=== PATIENT | female | born 1985 | race Caucasian/White ===

== ENCOUNTER → 2021-01-06 11:36 | Outpatient (BNVA) | payer SELFPAY | PROVIDERS: Family Provider Nurse Practitioner Family; Visit Provider Obstetrics & Gynecology | DX: N81.10 Cystocele, unspecified (principal); N93.9 Abnormal uterine and vaginal bleeding, unspecified; R35.0 Frequency of micturition | CPT/HCPCS: 83001; 84315; 84443; 84703; 85025 ==

== ENCOUNTER → 2021-02-06 08:07 | Outpatient (BNVA) | payer SELFPAY | PROVIDERS: Family Provider Nurse Practitioner Family; Visit Provider Obstetrics & Gynecology | DX: N85.2 Hypertrophy of uterus (principal) | CPT/HCPCS: 76830 ==

== ENCOUNTER → 2021-02-09 11:36 | Outpatient (BNVA) | payer SELFPAY | PROVIDERS: Family Provider Nurse Practitioner Family; Visit Provider Obstetrics & Gynecology | DX: Z11.52 Encounter for screening for COVID-19 (principal); N81.4 Uterovaginal prolapse, unspecified | CPT/HCPCS: 87635 ==

== ENCOUNTER 2021-02-15 14:03 | Observation (INO) | payer SELFPAY ==
[2021-02-13 10:22] VITALS: BMI 38.6
[2021-02-13 10:57] LABS: Basophils # 0.1 10^3/uL (0.0-0.1); Basophils % 1.5 %; Eosinophils # 0.2 10^3/uL (0.0-0.8); Eosinophils % 2.9 %; Hematocrit 42.7 % (37.0-47.0); Hemoglobin 14.2 g/dL (11.5-15.3); Lymphocytes # 1.6 10^3/uL (0.8-4.8); Lymphocytes % 27.3 %; Mean Corpuscular HGB Conc 33.3 g/dL (30.0-36.0); Mean Corpuscular Hemoglobin 29.3 pg (28.0-34.0); Mean Corpuscular Volume 88.2 fL (81-99); Monocytes # 0.5 10^3/uL (0.2-0.9); Monocytes % 7.6 %; Neutrophils % 60.4 %; Nucleated Red Blood Cells % 0 %; Platelet Count 312 10^3/cmm (130-400); Red Blood Count 4.84 10^6/uL (4.1-5.3); Red Cell Distribution Width 11.8 % (12.1-15.1)
[2021-02-13 11:13] LABS: Alanine Aminotransferase 28 U/L (0-33); Albumin Level 4.2 g/dL (3.5-5.2); Alkaline Phosphatase 50 IU/L (35-105); Aspartate Amino Transferase 21 U/L (0-32); Blood Urea Nitrogen 12 mg/dL (6-20); Calcium 8.6 mg/dL (8.5-10.5); Carbon Dioxide 25 mmol/L (22-29); Chloride 105 mmol/L (98-107); Globulin 2.6 g/dL (1.3-4.6); Glomerular Filtration Rate 94.7 mL/min (90-130); Glucose 111 mg/dL (65-115); Osmolality Calculated 290 mOsm/kg (285-295); Sodium 140 mmol/L (136-145); Total Bilirubin 0.4 mg/dL (0.15-1.2); Total Protein 6.8 g/dL (6.6-8.7)
[2021-02-13 11:38] LABS: OR HCG Qualitative Urine Negative (Negative)
--- NOTE | 2021-02-13 11:44 | P.ANESASSM_ITS ---
Pre-Anesthetic Assessment Pre-Anesthetic Assessment: Height/Weight: Height 1.63 m Weight 102.058 kg Preop Diagnosis: Abnormal uterine bleeding, pelvic pain, cystocele with uterine prolapse, st Proposed Procedure: Operation Date: 02/15/21 11:55 Proposed Procedures p Total Vaginal Hysterectomy 60836 [id number] N93.9 R10.2 N81.4(Not Applicable) - Glenn Lane MD s Anterior Repair Anterior Colporrhaphy(Not Applicable) - Gelnn Lane MD s Sling(Not Applicable) - Glenn Lane MD Was Beta Swathi taken within 24 hours: N/A Was Clonidine taken within 24 h ours: N/A Social: Social History: No alcohol and No tobacco Exam: Pre-Anes Outpt Exam: alert, oriented x 3, clear to auscultation bilaterally and regular rate & rhythm Airway: Submandibular: WNL Cervical ROM: WNL MP: 2 Dentition: Full History/ROS: No significant history except as noted Metabolic: Metabolic: Morbid obesity Anesthetic Plan: ASA status: 2 Anesthesia: General Risk of > 500 ml blood loss (7ml/kg in children): No PFSH Anesthesia PFSH: Medical History Abnormal uterine bleeding (AUB) Pelvic pain Family History Son Anesthesia complication Grandfather Diabetes maternal Mother Diabetes Hypertension Denies family history of Colon cancer Ovarian cancer Clotting disorder Heart disease Hyperlipidemia Breast cancer Bleeding disorder Uterine cancer Thyroid condition Stroke Social History (Updated 02/13/21 @ 08:47 by Claudia Oliver RN) Smoking and tobacco status: never smoked Alcohol intake: never Substance/Drug Use: never Female Reproductive History: Date of last menstrual period: 01/26/21 Data Anesthesia CBC & Chem 7: 02/13/21 10:34 02/13/21 10:34 Other Labs: Laboratory Results - last 48 hr 02/13/21 02/13/21 02/13/21 10:30 10:34 10:34 WBC 6.0 RBC 4.84 Hgb 14.2 Hct 42.7 MCV 88.2 MCH 29.3 MCHC 33.3 RDW 11.8 L Plt Count 312 MPV 10.0 Neut % (Auto) 60.4 Lymph % (Auto) 27.3 Bea[place]gard % (Auto) 7.6 Eos % (Auto) 2.9 Baso % (Auto) 1.5 Neut # (Auto) 3.60 Lymph # (Auto) 1.6 [place]gard # (Auto) 0.5 Eos # (Auto) 0.2 Baso # (Auto) 0.1 Nucleated RBC % (auto) 0 Nucleated RBCs # 0.0 Sodium 140 Potassium 4.0 Chloride 105 Carbon Dioxide 25 Anion Gap 14.0 BUN 12 Creatinine 0.7 GFR Calculation 94.7 Glucose 111 Calculated Osmolality 290 Calcium 8.6 Total Bilirubin 0.4 AST 21 ALT 28 Alkaline Phosphatase 50 Total Protein 6.8 Albumin 4.2 Globulin 2.6 Urine HCG, Qual Negative Cardiac Studies: No Data to Display
[2021-02-13 11:46] LABS: Urine Appearance Cloudy (CLEAR); Urine Color Yellow (Yellow)
[2021-02-13 11:47] LABS: Add Urine Microscopic? YES; Bilirubin Urine Neg (Negative); Blood Urine Neg (Negative); Glucose Urine UA Norm (Normal); Ketones Urine Negative (Negative); Leukocyte Esterase Urine Negative (Negative); Nitrate Urine Negative (Negative); Protein Urine Neg (Negative); Urobilinogen Urine Norm (Negative); pH Urine 5 (5-7)
[2021-02-13 12:19] LABS: Add Urine Culture? No; Amorphous Sediment Urine 2+ /hpf; Bacteria Urine 1+ /hpf; Mucus Urine 2+ /hpf; RBC Urine 0-4 /hpf (0-2)
[2021-02-15] VITALS (19 sets, daily range): BP systolic 90–144; BP diastolic 66–88; PULSE 59–90; RESP 16–20; TEMP 36.1–36.8; O2SAT 92–100
[2021-02-15 10:41] LABS: OR HCG Qualitative Urine Negative (Negative)
--- NOTE | 2021-02-15 10:49 | W.PM.OPSUD ---
Surgery/Procedure H&P Update DATE OF PROCEDURE: February 15, 2021 DATE H&P PERFORMED: 02/13/21 H&P UPDATE INFORMATION: I have reviewed H&P completed within last 30 days, I have examined patient prior to procedure and No changes to prior documentation PREOP DIAGNOSIS: Abnormal uterine bleeding, pelvic pain, cystocele with uterine prolapse, st PLANNED PROCEDURE: Operation Date: 02/15/21 11:55 Proposed Procedures p Total Vaginal Hysterectomy [id number] N93.9 R10.2 N81.4(Not Applicable) - Glenn Lane MD s Anterior Repair Anterior Colporrhaphy(Not Applicable) - Glenn Lane MD s Sling(Not Applicable) - Glenn Lane MD
[2021-02-15] MEDS: scopolamine 1.5 Patch 1 PATCH TRANSDERMA (10:59)
[2021-02-15] MEDS: sodium chloride 0.9% 500 ML IV (11:16)
--- NOTE | 2021-02-15 11:22 | P.ANESUD_ITS ---
Pre-Anesthetic Update Pre-Anesthetic Assessment: Date of Surgery/Procedure: 02/15/21 Preop Naa gnosis: Abnormal uterine bleeding, pelvic pain, cystocele with uterine prolapse, st Proposed Procedure: Operation Date: 02/15/21 11:55 Proposed Procedures p Total Vaginal Hysterectomy 63317 [id number] N93.9 R10.2 N81.4(Not Applicable) - Glenn Lane MD s Anterior Repair Anterior Colporrhaphy(Not Applicable) - Glenn Lane MD s Sling(Not Applicable) - Glenn Lane MD Any changes to Pre-Anesthetic Assessment?: No Last Intake: Intake Last Liquid Date 02/14/21 Last Liquid Time 22:30 Last Solid Date 02/14/21 Last Solid Time 19:00 Labs Last 48hrs: Laboratory Results - last 48 hr 02/13/21 02/13/21 02/13/21 10:30 10:30 10:34 Urine Color Yellow Urine Appearance Cloudy Urine pH 5 Ur Specific Gravit y 1.030 Urine Protein Neg Urine Glucose (UA) Norm Urine Ketones Negative Urine Blood Neg Urine Nitrate Negative Urine Bilirubin Neg Urine Urobilinogen Norm Ur Leukocyte Fariba ase Negative Urine RBC 0-4 H Urine WBC None Ur Squamous Epith Cells 10-15 H Amorphous Sediment 2+ Urine Bacteria 1+ H Urine Mucus 2+ Urine HCG, Qual Negative Blood Type O Positive Rho(D) Type Positive / 4+ Antibody Screen Negative 02/15/21 10:37 Urine Color Urine Appearance Urine pH Ur Specific Gravit y Urine Protein Urine Glucose (UA) Urine Ketones Urine Blood Urine Nitrate Urine Bilirubin Urine Urobilinogen Ur Leukocyte Fariba ase Urine RBC Urine WBC Ur Squamous Epith Cells Amorphous Sediment Urine Bacteria Urine Mucus Urine HCG, Qual Negative Blood Type Rho(D) Type Antibody Screen Vitals: Temperature 98 F 02/15/21 10:46 Temperature Source Temporal Artery S can 02/15/21 10:46 Pulse Rate 79 02/15/21 10:46 Respiratory Rate 16 02/15/21 10:46 Blood Pressure 144/88 02/15/21 10:46 Blood Pressure Lorelei n 106 02/15/21 10:46 Oxygen Delivery Me thod 02/15/21 10:46 Exam: Pre-Anes Outpt Exam: alert, oriented x 3, clear to auscultation bilaterally and regular rate & rhythm Cardiac Studies: No Data to Display
[2021-02-15] MEDS: sodium chloride 0.9% 1,000 ML 30 ML IV (11:58)
[2021-02-15] MEDS: ceFOXitin 2,000 MG in sodium chloride 0.9% (plus) 50 ML 100 MG IV (12:07)
[2021-02-15] MEDS: estrogens Conjugated Cream 30 gm 1 APPLIC VAGINAL (13:51)
--- NOTE | 2021-02-15 14:00 | P.OP_ITS ---
Operative Report Date of procedure: February 15, 2021 Pre-op Diagnosis: Abnormal uterine bleeding, pelvic pain, cystocele with uterine prolapse, st Post-op diagnosis: same Procedure Done: Total vaginal hysterectomy with anterior colporrhaphy augmented with allograft and mid urethral single incision sling Cystoscopy Specimens removed/disposition: Uterus Pathology: Uterus Surgeon: Glenn Lane MD Anesthesia: General Estimated blood loss (mL): 100 IV fluids (mL): 1,100 Urine output (mL): 400 Complications: None Condition: stable Disposition: PACU Brief History: 36-year-old with abnormal uterine bleeding, chronic pelvic pain, cystocele and stress urinary incontinence Procedure: After obtaining informed consent, the patient was taken to the operating room and placed in the supine position, given general anesthesia, and prepped and draped in sterile fashion. The abdomen, vulva and vagina were prepped and draped in a sterile manner. A time out procedure was performed. Exam under anesthesia performed. A Alves catheter was placed in the bladder. The anterior vaginal mucosa beneath the midurethra was infiltrated with 0.5% Marcaine with epinephrine. A vertical midline incision was made beneath the midurethra, nearly 1.5 cm length. Careful submucosal dissection was performed bilaterally up to the interior portion of the inferior pubic ramus. The insertion of adductor longus tendon on the patient?s pubic ramus was identified as reference land vince. Palpated the notch along the internal edge of ischiopubic ramus where the adductor longus tendon and the inferior pubic ramus meet. The needle of the SIS inserted aiming at the location of this notch. One of the integrated self-fixating tips place onto the needle by sliding it over the end of the needle. The needle/sling assembly was inserted toward the location of identified reference notch making sure that the flat of the handle is perpendicular to the desired path. The needle was tracked along the posterior surface of the ischiopubic ramus until the midline vince on the mesh is approximately at the midline position under the urethra. The needle was removed and the same was repeated on the contralateral side until the appropriate sling tension under the urethra was achieved ensuring that the mesh lays flat. The needle was removed and vaginal incision was closed in a running interlocking fashion with 2-0 Vicryl. Then proceeded to performed the single incision midurethral sling. A vertical midline incision was made beneath the midurethra, nearly 1.5 cm length. Careful submucosal dissection was performed bilaterally up to the interior portion of the inferior pubic ramus. The insertion of adductor longus tendon on the patient?s pubic ramus was identified as reference land vince. Palpated the notch along the internal edge of ischiopubic ramus where the adductor longus tendon and the inferior pubic ramus meet. The Altis single incision sling (SIS) was selected. With thin porcine graft the mesh of the sling was lined anteriorly and posteriorly with the graft. Then the needle of the SIS inserted aiming at the location of this notch. One of the integrated self- fixating tips place onto the needle by sliding it over the end of the needle. The needle/sling assembly was inserted toward the location of identified reference notch making sure that the flat of the handle is perpendicular to the desired path. The needle was tracked along the posterior surface of the ischiopubic ramus until the midline vince on the mesh is approximately at the midline position under the urethra. The needle was removed and the same was repe ated on the contralateral side until the appropriate sling tension under the urethra was achieved ensuring that the mesh lays flat. The needle was removed and vaginal incision was closed in a running interlocking fashion with 2-0 Vicryl. Then the Alves catheter was removed and cystoscope was inserted. The bladder was filled with sterile water. Complete evaluation of the bladder mucosa was performed noting no lacerations, dimpling, tears, bleeding of the mucosa or muscular layers. Both ureteral orifices were identified. Prompt excretion of urine from both ureteral orifices was noted. Cystoscope was withdrawn. Excellent hemostasis was obtained. Sponge, lap, needle, and instrument counts were correct times three. The patient was taken to the recovery room, awake and in stable condition.
--- NOTE | 2021-02-15 14:15 | P.PCN_ITS ---
PACU note PACU note: VSS, Good respiratory effort, report to COSMETICS DEMONSTRATOR Post-Anesthesia Exam: awake
--- NOTE | 2021-02-15 14:15 | PM.PACU ---
PACU note PACU note: VSS, Good respiratory effort, report to LABORER OPERATOR Post-Anesthesia Exam: awake
--- NOTE | 2021-02-15 14:19 | SUR.PHASEI ---
PT TO PACU LYING ON LT SITE WITH GOOD RESP EFFORT, VSS IV PATENT NO VAGINAL DRAINAGE NOTED SCDS ON , MCPHERSON TO DD WITH YELLOW URINE NOTED IN TUBING AND BAG.
[2021-02-15] MEDS: fentaNYL 50 mcg/mL INJ 2mL IVP (14:25)
--- NOTE | 2021-02-15 14:32 | ANE.PACU2 ---
Inpatient post-anesthesia follow up: Airway intact: Yes Vital signs: Temperature 97 F Pulse Rate 77 Respiratory Rate 20 Blood Pressure 111/68 Pulse Oximetry 92 Oxygen Delivery Me thod Simple Mask Oxygen Flow Rate 6 Fraction of Inspir ed Oxygen Hydration adequate: Yes Nausea and vomiting: No Pain level: 2 Mental status: Baseline
[2021-02-15] MEDS: ondansetron 2 mg/ML SDV 2 mL 4 MG IVP (14:48)
--- NOTE | 2021-02-15 15:26 | SUR.PHASEI ---
1451 PT MOVED UP IN BED AND READIED FOR TRANSPORT, PT THEN NAUSEATED SEE MED GIVEN AND PT GIVEN COOL CLOTH, NAUSEA SUBSIDED AND PT TO OB PER CART 1500 PT TO ROOM AND MOVES SELF TO BED THEN C/O OF NAUSEA AGAIN, VSS , PT ALERT NO VAGINAL BLEEDING NOTED , MCPHERSON PATENT OF YELLOW URINE.
[2021-02-15] MEDS: ketorolac 30 mg/mL INJ IVP (15:40)
[2021-02-15] MEDS: ondansetron 2 mg/ML SDV 2 mL 4 MG (15:40)
[2021-02-15] MEDS: dextrose 5%-lactated ringers 1,000 ML 125 ML IV (17:56)
[2021-02-16 01:53] VITALS: BP 109/64; PULSE 78; RESP 16
[2021-02-16 05:37] LABS: Hematocrit 36.1 % (37.0-47.0); Mean Corpuscular HGB Conc 33.2 g/dL (30.0-36.0); Mean Corpuscular Hemoglobin 29.3 pg (28.0-34.0); Mean Corpuscular Volume 88.3 fL (81-99); Mean Platelet Volume 10.3 fL (7.4-10.4); Platelet Count 294 10^3/cmm (130-400); Red Blood Count 4.09 10^6/uL (4.1-5.3); Red Cell Distribution Width 11.9 % (12.1-15.1); White Blood Count 10.1 10^3/uL (4.0-10.0)
[2021-02-16 06:23] VITALS: BP 130/80; PULSE 90; RESP 16; TEMP 36.7
[2021-02-16] MEDS: acetaminophen 325 mg Tablet 650 MG PO (07:22)
[2021-02-16] MEDS: docusate sodium 100 mg Capsule PO (08:48)
[2021-02-16] MEDS: simethicone 80 mg Chew PO (08:52)
--- NOTE | 2021-02-16 09:23 | PC.NURSE ---
0830 vaginal packing removed intact; pt tolerated well
--- NOTE | 2021-02-16 10:26 | P.DS_ITS ---
Discharge Providers CHIEF HUMAN RESOURCES OFFICER Date of Admission: 02/15/21 14:03 Date of Discharge: 02/16/21 Attending Provider at Admission: Glenn Lane MD Attending Provider at Discharge: Glenn Lane MD Reason for Visit Reason for Visit: abnormal utrerine bleeding Brief History: Mrs. Sherman 36-year-old female with abnormal uterine bleeding unresponsive to medical management, cystocele and stress urinary incontinence Hospital Course Hospital Course Mrs. Sherman 36-year-old female admitted for planned total vaginal hysterectomy anterior colporrhaphy and mid urethral sling. The procedures were performed without complications. She is afebrile and hemodynamically stable. Ambulating without difficulty, passing flatus, tolerating diet well. Physical Exam Narrative: EXAM NARRATIVE: GA: Alert and oriented ?3. HEENT: WNL. Heart: Regular rate and rhythm. Lungs: Clear to auscultation bilaterally. Abdomen: Bowel sounds present, nontender. DINING CAR STEWARD: No bleeding. Extremities: No edema, no cyanosis, no calves pain. Urinary Catheter Management^: Alves: Cath Placed During This Visit: yes Urinary Catheter Date of Insertion: 02/15/21 Urinary Catheter Time of Insertion: 12:20 Discharge Data Data Completed and Pending: Pending at discharge Category Date Time Status Pathology: Surgic al [PTH] Routine Pth 02/15/21 14:13 Ordered Labs from last 24 hours 02/16/21 02/15/21 04:55 10:37 WBC 10.1 H RBC 4.09 L Hgb 12.0 Hct 36.1 L MCV 88.3 MCH 29.3 MCHC 33.2 RDW 11.9 L Plt Count 294 MPV 10.3 Urine HCG, Qual Negative Vitals: Last Vital Signs Temp 98.1 F 02/16/21 06:23 Pulse 90 02/16/21 06:23 Resp 16 02/16/21 06:23 BP 130/80 02/16/21 06:23 Pulse Ox 96 02/15/21 19:42 Discharge Plan Discharge Patient Disposition: Home Condition: Stable Prescriptions: New hydrocodone-acetaminophen 5-325 mg tablet 1 tab PO Q4H PRN (Reason: pain) Qty: 20 RF: 0 acetaminophen 325 mg capsule 325 mg PO Q4H PRN (Reason: fever or pain) Qty: 60 RF: 0 ibuprofen 800 mg tablet 800 mg PO TID PRN (Reason: pain) Qty: 60 RF: 0 Continued phentermine 37.5 mg capsule 37.5 mg PO DAILY RF: 0 Discharge Orders: Discharge Order (Routine); Ordered 02/16/21 Ordered By: Glenn Lane Referrals: Glenn Lane MD [Physician] - (* Your 2 week incision check is on 02/28/2021 at 7:45am * Your 6 week follow up appointment is 03/31/2021 at 1:30pm) Discharge Diet: Usual diet Discharge Activity: Increase activity as tolerated Patient Instructions: Vaginal Hysterectomy (DC), Anterior Vaginal Repair (DC), Bladder Sling Procedures (DC), OB Discharge Report, OB Food/Drug Interaction Guide, Opioid Safety Activity Restrictions/Additional Instructions: 1. Please call [facility] on next working day to make your post-operative appointment in 2 weeks. 2. Please stay home until you come back to the clinic on first post-operative check up. 3. Please follow instructions on your medications CAREFULLY. 4. If you have abdominal incision, do not cover it unless dressing is necessary because of drainage. OK to shower, but avoid bath. Leave steri-strips until they fall off. If they are still on one week after surgery, you may remove them. 5. If you had vaginal surgery or vaginal repair, Dr. Lane may instruct you to take SITZ bath. 6. Yellow, blood tinged odorous vaginal discharge is usually normal after hysterectomy or vaginal surgeries. 7. No sexual intercourse, tampons, or douches until you are completely released from the post-operative care. 8. Avoid constipation by eating right and maybe using some Metamucil or Milk of Magnesia. 9. All prescription refills are given during the working hours. Please do no wait till it runs out. Call the clinic at [phone] before your medication runs out. The clinic will get in touch with your doctor to prescribe medications if necessary. 10. Please remain within 40 mile radius from our hospital because emergencies do happen now and then during the post-operative period. 11. If you have stairs at home, take one step at a time slowly and minimize the number of trips. It helps to stay in one floor for the next few days. No lifting except what you can lift by one hand until you are released from the post-operative care. 12. Driving is discouraged until you are well healed. It may be 3-4 weeks before you feel strong enough to drive. You should be able to turn and look through the rear window without pain and you should be able to push the brake pedal very hard without pain before you drive. No fast rules, but SAFETY should be your primary concern. DO NOT drive if you are on sedating medications such as narcotics. 13. Call the clinic (during working hours) to make urgent appointment or go to the Emergency room, if any of the following occurs: i. Vaginal bleeding becomes heavy, more than a period. ii. Incision becomes red and sore, or drains pus. iii. Your temperature is over 100.4 or you have chill. iv. IV site becomes red and swollen (a little ``knot?? is usually OK) v. Persistent nausea and vomiting vi. Persistent constipation or diarrhea vii. Rash or allergic reaction to medications. Discharge Attestations CHIEF HUMAN RESOURCES OFFICER Time Spent in Discharge Care*: greater than 30 min Coding Level of Care Code Acute Video Tape Editor for Deyanira Dawson
[2021-02-16 10:31] VITALS: BP 117/76; PULSE 105; RESP 16; TEMP 36.8
[2021-02-16 13:02] VITALS: BP 118/64; PULSE 98; RESP 16; TEMP 36.9; O2SAT 97
== END 2021-02-16 13:20 | disposition home or self-care (01) ==
LOC: OBGYN 14:22
PROVIDERS: Admitting Provider Obstetrics & Gynecology; Visit Provider Obstetrics & Gynecology
PROC: (CPT 57240; principal; 2021-02-15 11:55)
PROC: 0JQC0ZZ Repair Pelvic Region Subcutaneous Tissue and Fascia, Open Approach (ICD-10-PCS; CPT 57240; 2021-02-15 11:55)
PROC: (CPT 57288; 2021-02-15 11:55)
DX: N93.9 Abnormal uterine and vaginal bleeding, unspecified (principal); N81.4 Uterovaginal prolapse, unspecified; R10.2 Pelvic and perineal pain; E66.01 Morbid (severe) obesity due to excess calories; Z68.38 Body mass index [BMI] 38.0-38.9, adult
CPT/HCPCS: 57240; 57260; 57288; 36415; 51798; 80053; 81001; 81025; 84703; 85025; 85027; 86850; 86900; 88307; 96365; C1713; C1762; G0378; J0694; J1100; J1885; J2405; J2704; J2710; J3010; J3490; J7030; J7040; Q9968

== ENCOUNTER 2021-02-25 19:50 | Emergency (ER) | payer SELFPAY ==
[2021-02-25 19:57] VITALS: BP 137/87; PULSE 94; RESP 18; TEMP 36.9; O2SAT 99; BMI 37.0
[2021-02-25 20:27] VITALS: BP 140/85; PULSE 88; RESP 16; O2SAT 99
--- NOTE | 2021-02-25 20:37 | ED_ITS ---
HPI - Female Genitourinary General: Chief complaint: Vaginal Bleeding Stated complaint: vaginal bleeding post hysterectomy Time Seen by Provider: 02/25/21 20:17 Source: patient Mode of arrival: ambulatory Limitations: no limitations History of Present Illness: HPI Narrative: Patient is a very nice 36-year-old female who presents to ED today for an evaluation of vaginal bleeding. Patient tells me approximately 12 days ago she had a total hysterectomy with anterior colporrhaphy with urethral incision sling performed by Dr. Lane. Patient states following the surgery she was doing well. She states because of the pain medications she became constipated and 2 days ago treated with Colace as well as a rectal suppository. She states she strained and had a large bowel movement but shortly after began noticing heavy vaginal bleeding. She states throughout today she has soaked 3 overnight pads. She is not having any dizziness or lightheadedness. She has a follow-up appointment with Dr. Lane on Saturday. MD elicited complaint: vaginal bleeding Pertinent past history: other (recent pelvic surgery) Onset (ago): day(s) (yesterday) Location of symptoms: vaginal Vaginal discharge: none Vaginal bleeding: moderate and # pads per day (3) Exacerbating factors: none Relieving factors: none Associated symptoms: Reports no associated symptoms and vaginal bleeding (small amount of blood in vaginal canal-two large qtips cleared); Deny abdominal pain, headache(s) or nausea Treatment prior to arrival: none Sexual activity: No ( no sexual activity since surgery; sexually active with ) Patient : No Date of Last Menstrual Period: 01/26/21 Review of Systems Const: Denies: fever(s), chills, body aches, fatigue or malaise Eyes: Denies: change in vision Card: Denies: chest pain Resp: Denies: dyspnea GI: Denies: abdominal pain, nausea or vomiting : Reports: vaginal bleeding and pelvic pain (present since surgery-not worsening ); Denies: flank pain, difficulty voiding, dysuria, urinary frequency, urinary urgency, urinary hesitancy, hematuria or genital lesions Musc: Denies: neck pain or back pain Skin/Breast: Denies: rash Neuro: Denies: headache(s) PFS ED PFSH: Medical History Abnormal uterine bleeding (AUB) Pelvic pain Family History Son Anesthesia complication Grandfather Diabetes maternal Mother Diabetes Hypertension Denies family history of Colon cancer Ovarian cancer Clotting disorder Heart disease Hyperlipidemia Breast cancer Bleeding disorder Uterine cancer Thyroid condition Stroke Social History (Updated 02/13/21 @ 08:47 by Claudia Oliver RN) Smoking and tobacco status: never smoked Alcohol intake: never Female Reproductive History: Date of last menstrual period: 01/26/21 Physical Exam Const: COMMON NORMALS: no acute distress, patient oriented x3, no limitations and alert GENERAL APPEARANCE: cooperative Resp: COMMON NORMALS: normal respiratory effort and clear to auscultation bi laterally AUSCULTATION: clear to auscultation bilaterally Cardio: COMMON NORMALS: regular rate and regular rhythm RATE: regular rate RHYTHM: regular rhythm GI: COMMON NORMALS: Normal to inspection, nondistended, normoactive bowel sounds present, Soft to palpation, non-tender, No hepatosplenomegaly present and no masses PALPATION: Yes Soft to palpation and Yes No hepatosplenomegaly present : COMMON NORMALS: Yes no CVA tenderness, Yes normal external appearance and Yes normal appearance of the vagina BLADDER/KIDNEY EXAM: Yes no CVA tenderness SPECULUM EXAM - VAGINA: Yes vaginal bleeding (small amount of blood in vaginal canal-two large qtips cleared) and No tissue present in vagina OB/EXTERNAL & SPECULUM: vaginal bleeding (small amount of blood in vaginal canal-two large qtips cleared); no tissue noted in vagina Back/Pelvis: COMMON NORMALS: no CVA tenderness Neuro: COMMON NORMALS: patient oriented x3 SENSORIUM/ORIENTATION: Yes alert Course Consultations: Consultation #1: Dr. Lane-consulted after my initial assessment to see if pelvic exam could be performed based on recent surgery and to see if imaging would be indicated; he did recommend pelvic exam and to call him back afterwards; did not recommend CT/US imaging at this time; he was called back after pelvic exam and stated patient could follow up with him at her scheduled appointment on Saturday. Vital Signs: Vital signs: Vital Signs Temperature 98.5 F 02/25/21 19:57 Pulse Rate 88 02/25/21 20:27 Respiratory Rate 16 02/25/21 20:27 Blood Pressure 140/85 02/25/21 20:27 Pulse Oximetry 99 02/25/21 20:27 MDM - Female MDM Narrative: Medical decision making narrative: Patient is a nice 36-year-old female who presents to ED today for vaginal bleeding following a hysterectomy with anterior colporrhaphy and urethral/bladder sling. Patient is not tachycardic or hypotensive. Her H&H are higher than they were at the time of the surgery. Bleeding on her pelvic exam was minimal. She is hemodynamically stable at this time and stable to follow-up with Dr. Lane on Saturday. Strict return to ED precautions given. Dr. Lane did not recommend any form of imaging at this time. Her abdomen was soft and nonsurgical. Lab Data: Labs: Lab Results 02/25/21 Range/Units 20:46 WBC 8.1 (4.0-10.0) 10^3/ uL RBC 4.42 (4.1-5.3) 10^6/u L Hgb 12.9 (11.5-15.3) g/dL Hct 38.8 (37.0-47.0) % MCV 87.8 (81-99) fL MCH 29.2 (28.0-34.0) pg MCHC 33.2 (30.0-36.0) g/dL RDW 11.5 L (12.1-15.1) % Plt Count 374 (130-400) 10^3/c mm MPV 10.0 (7.4-10.4) fL Neut % (Auto) 64.9 % Lymph % (Auto) 22.1 % [place] % (Auto) 7.4 % Eos % (Auto) 4.3 % Baso % (Auto) 1.1 % Neut # (Auto) 5.25 (1.8-7.7) 10^3/u L Lymph # (Auto) 1.8 (0.8-4.8) 10^3/u L [place] # (Auto) 0.6 (0.2-0.9) 10^3/u L Eos # (Auto) 0.4 (0.0-0.8) 10^3/u L Baso # (Auto) 0.1 (0.0-0.1) 10^3/u L Nucleated RBC % (a uto) 0 % Nucleated RBCs # 0.0 /100WBC Discharge Plan Discharge Patient Disposition: Home Clinical Impression: Postoperative vaginal bleeding following genitourinary procedure Condition: Stable Prescriptions: No Action phentermine 37.5 mg capsule 37.5 mg PO DAILY RF: 0 ibuprofen 800 mg tablet 800 mg PO TID PRN (Reason: pain) Qty: 60 RF: 0 hydrocodone-acetaminophen 5-325 mg tablet 1 tab PO Q4H PRN (Reason: pain) Qty: 20 RF: 0 acetaminophen 325 mg capsule 325 mg PO Q4H PRN (Reason: fever or pain) Qty: 60 RF: 0 Discharge Orders: Discharge ED (Routine); Ordered 02/25/21 Ordered By: Mckenzie Vela Activity Restrictions/Additional Instructions: Continue taking the Colace daily to help continue to soften bowel movements. Please follow-up with Dr. Lane at your scheduled appointment on Saturday. You need to return to the emergency department before then if bleeding worsens or becomes severe, you begin feeling lightheaded or dizzy, severe abdominal pain, or any other concerns you may have. Coding Level of Care Code ED Architect Internship for Deyanira Fwstanley Exam Detailed
[2021-02-25 21:06] LABS: Basophils # 0.1 10^3/uL (0.0-0.1); Basophils % 1.1 %; Eosinophils # 0.4 10^3/uL (0.0-0.8); Eosinophils % 4.3 %; Hematocrit 38.8 % (37.0-47.0); Hemoglobin 12.9 g/dL (11.5-15.3); Lymphocytes # 1.8 10^3/uL (0.8-4.8); Lymphocytes % 22.1 %; Mean Corpuscular HGB Conc 33.2 g/dL (30.0-36.0); Mean Corpuscular Hemoglobin 29.2 pg (28.0-34.0); Mean Corpuscular Volume 87.8 fL (81-99); Monocytes # 0.6 10^3/uL (0.2-0.9); Monocytes % 7.4 %; Neutrophils # 5.25 10^3/uL (1.8-7.7); Neutrophils % 64.9 %; Nucleated Red Blood Cells % 0 %; Platelet Count 374 10^3/cmm (130-400); Red Blood Count 4.42 10^6/uL (4.1-5.3); Red Cell Distribution Width 11.5 % (12.1-15.1); White Blood Count 8.1 10^3/uL (4.0-10.0)
== END 2021-02-25 23:17 | disposition home or self-care (01) ==
PROVIDERS: Emergency Provider Physician Assistant
DX: N99.820 Postprocedural hemorrhage of a genitourinary system organ or structure following a genitourinary system procedure (principal)
CPT/HCPCS: 85025; 99282; E0352

== ENCOUNTER 2021-04-29 12:11 | Emergency (ER) | payer SELFPAY ==
[2021-04-29 12:30] VITALS: BP 123/87; PULSE 83; RESP 16; TEMP 36.8; O2SAT 98; BMI 34.3
[2021-04-29 12:37] VITALS: BP 133/90; PULSE 77; RESP 12; O2SAT 97
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
[2021-04-29 13:37] VITALS: BP 116/99; PULSE 79; RESP 14; O2SAT 98
[2021-04-29 13:38] VITALS: O2SAT 97
[2021-04-29 14:26] LABS: SARS Covid-2 Antigen Positive (Negative)
[2021-04-29 15:10] VITALS: BP 116/99; PULSE 79; RESP 14; O2SAT 98
== END 2021-04-29 15:13 | disposition home or self-care (01) ==
PROVIDERS: Emergency Provider Physician Assistant
DX: U07.1 COVID-19 (principal)
CPT/HCPCS: 87426; 99282